=== PATIENT | female | born 1990 | race Caucasian/White ===

== ENCOUNTER → 2018-02-09 | Outpatient (CLI) | payer OTHER ==
[~2018-02-09] MED LIST: ACET325 PO; CALCA500CH PO; CEPH500 PO; HYDR1TAB94 PO; METAXALONE400 MG PO; NAPR250 PO; NAPR500 PO; NITR100CA PO; Verotin-Gr Cap1 EACH PO
== END ==
LOC: LAB 09:27 → LAB SHORT 09:27
DX: Z34.80 Encounter for supervision of other normal pregnancy, unspecified trimester (principal)
CPT/HCPCS: 87081; 87653

== ENCOUNTER 2018-02-23 20:31 | Inpatient (IN) | payer OTHER ==
[~2018-02-23] VITALS: Ht 170.2 cm; Wt 85.0 kg
[2018-02-23 22:05] LABS: BASOPHILS ABSOLUTE AUTO 0.03 K/mm3 (0.00-0.23); BASOPHILS PERCENT AUTO 0 % (0-2); EOSINOPHILS ABSOLUTE AUTO 0.07 K/mm3 (0.00-0.68); EOSINOPHILS PERCENT AUTO 0 % (0-6); Hematocrit 34.5 % (33.0-51.0); Hemoglobin 11.4 g/dL (11.5-16.0); IMMATURE GRAN ABSOLUTE AUTO 0.15 K/mm3 (0.00-0.10); IMMATURE GRAN PERCENT AUTO 1 % (0-1); LYMPHOCYTES ABSOLUTE AUTO 2.33 K/mm3 (0.84-5.20); LYMPHOCYTES PERCENT AUTO 15 % (21-46); MONOCYTES ABSOLUTE AUTO 1.03 K/mm3 (0.16-1.47); MONOCYTES PERCENT AUTO 7 % (4-13); Mean Corpuscular HGB 30.6 pg (26.0-34.0); Mean Corpuscular Volume 93 fL (80-100); Mean Platelet Volume 8.6 fL (9.1-12.4); NEUTROPHILS ABSOLUTE AUTO 12.34 K/mm3 (1.96-9.15); NEUTROPHILS PERCENT AUTO 77 % (41-73); Platelet Count 250 K/mm3 (150-400); RDW Standard Deviation 44.1 fL (35.1-46.3); Red Blood Cell Count 3.73 M/mm3 (3.80-5.20); White Blood Cell Count 15.95 K/mm3 (4.00-11.30)
[2018-02-24 06:08] LABS: Hematocrit 29.5 % (33.0-51.0); Hemoglobin 9.9 g/dL (11.5-16.0); Mean Corpuscular HGB 30.6 pg (26.0-34.0); Mean Corpuscular HGB Conc 33.6 g/dL (31.5-36.5); Mean Corpuscular Volume 91 fL (80-100); Mean Platelet Volume 8.9 fL (9.1-12.4); Platelet Count 230 K/mm3 (150-400); RDW Coefficient Variation 12.8 % (11.7-14.2); RDW Standard Deviation 42.4 fL (35.1-46.3); Red Blood Cell Count 3.24 M/mm3 (3.80-5.20); White Blood Cell Count 18.37 K/mm3 (4.00-11.30)
== END 2018-02-24 23:16 | disposition home or self-care (01) | DRG 775 ==
LOC: OBS 20:31 → BC 20:33 → OBS 21:10 → BC 21:13
PROVIDERS: Obstetrics & Gynecology
PROC: 10E0XZZ Delivery of Products of Conception, External Approach (ICD-10-PCS; principal; 2018-02-23)
PROC: 0HQ9XZZ Repair Perineum Skin, External Approach (ICD-10-PCS; 2018-02-23)
DX: O70.0 First degree perineal laceration during delivery (principal); Z3A.38 38 weeks gestation of pregnancy; Z37.0 Single live birth
CPT/HCPCS: 36415; 85025; 85027; J2590; J7120

== ENCOUNTER 2018-08-30 10:31 | Day surgery (SDC) | payer OTHER, BC ==
[2018-08-30] MEDS ORDERED: VITAMIN D-32000 UNIT PO (17:01)
[2018-08-30] MEDS ORDERED: MAGNESIUM400 MG PO (17:02)
[2018-08-30] MEDS ORDERED: PROBIOTIC250 MG PO (17:03)
[2018-08-30] MEDS ORDERED: VP-VITE RX TAB1 EACH PO (17:03)
[2018-08-30] MEDS ORDERED: ASCO500 PO (17:04)
[2018-08-30] MEDS ORDERED: Verotin-Gr Cap1 EACH PO (17:04)
[2018-08-30] MEDS ORDERED: DOC250 PO (17:04)
[2018-08-30] MEDS ORDERED: ELEMENTAL IRON PO (17:07)
== END 2018-08-30 17:20 | disposition home or self-care (01) ==
LOC: ATC 10:31
DX: R42 Dizziness and giddiness (principal); E86.0 Dehydration; R53.83 Other fatigue
CPT/HCPCS: 96360; 96361; J7030

== ENCOUNTER 2018-10-14 09:32 | Day surgery (SDC) | payer OTHER ==
[~2018-10-14] VITALS: Ht 170.2 cm; Wt 66.8 kg
[~2018-10-14 09:32] MED LIST changes: +ASCO500 PO; +B Complex #11 EACH PO; +CHOL10002 PO; +DOC250 PO; +ELEMENTAL IRON PO; +MAGNESIUM400 MG PO; +ORTHO MICRONO0.35 MG PO; +PROBIOTIC250 MG PO; +PROBIOTICS; +VITAMIN C500 M1 PO; +VITAMIN D-32000 UNIT PO; +VP-VITE RX TAB1 EACH PO
[2018-10-14] MEDS ORDERED: Verotin-Gr Cap1 EACH PO (10:19)
[2018-10-14] MEDS ORDERED: ACET500 PO (10:21)
--- NOTE | 2018-10-14 12:03 | NUR ---
10/14/18 1203 Nellie Rodriguez LARGE BRUISE NOTED ON THE LATERAL THIGH, MULTIPLE SMALL BRUISES WITH VARYING DEGREES OF HEALING OVER THE KNEE/GARCIA/DISTAL THIGH
--- NOTE | 2018-10-14 13:35 | NUR ---
10/14/18 4455 Mirta Sawyer TOOK REPORT FROM [facility].NVP PT RESTING IN RECLINER WITH OPERATIVE LIMB ELEVATED AND POLAR CHARLES APPLIED. TOLERATING WATER WITHOUT C/O NAUSEA. RATES PAIN 4/10. CALL LIGHT IN REACH. WILL CONT TO MONITOR
== END 2018-10-14 14:41 | disposition home or self-care (01) ==
LOC: ORSCSDS 09:32
PROVIDERS: Orthopaedic Surgery
PROC: 0SQD4ZZ Repair Left Knee Joint, Percutaneous Endoscopic Approach (ICD-10-PCS; principal; 2018-10-14 10:45)
DX: S83.242A Other tear of medial meniscus, current injury, left knee, initial encounter (principal)
CPT/HCPCS: A9270-GY; C1713; J0171; J2250; J2795; J3010; J7120

== ENCOUNTER → 2019-02-09 | Outpatient (CLI) | payer OTHER ==
[~2019-02-09] MED LIST changes: +ACET500 PO
== END | disposition home or self-care (01) ==
LOC: LAB 10:51 → LAB SHORT 10:51
PROVIDERS: Obstetrics & Gynecology
DX: Z01.419 Encounter for gynecological examination (general) (routine) without abnormal findings (principal)
CPT/HCPCS: G0123

== ENCOUNTER → 2021-04-23 | Outpatient (CLI) | payer OTHER ==
[2021-04-24 13:10] LABS: HPV 16 Negative (Negative); HPV 18 Negative (Negative); HPV OTHER HR TYPES Negative (Negative)
== END | disposition home or self-care (01) ==
LOC: LAB 10:50 → LAB SHORT 10:50
PROVIDERS: Obstetrics & Gynecology
DX: Z01.419 Encounter for gynecological examination (general) (routine) without abnormal findings (principal)
CPT/HCPCS: 87624; G0123